=== PATIENT | male | born 1945 | race Caucasian/White ===

== ENCOUNTER 2024-04-02 13:15 | Outpatient (CLI) | payer OTHER, SELFPAY ==
[2024-04-02] MEDS: PERFLUTREN LIPID MICROSPHERES 2 ML VIAL IVP (14:10)
== END 2024-04-02 13:16 | disposition home or self-care (01) ==
LOC: RAD 13:21
PROVIDERS: Visit Provider Chiropractor
DX: I51.9 Heart disease, unspecified (principal)
CPT/HCPCS: 93306; Q9957